=== PATIENT | female | born 2000 | race Caucasian/White ===

== ENCOUNTER 2023-10-03 14:29 | Emergency (ER) | payer SELFPAY ==
[~2023-10-03] VITALS: Ht 160 cm; Wt 60.0 kg
[2023-10-03 14:38] VITALS: TEMP 97.8; O2SAT 100
[2023-10-03] MEDS ORDERED: DIPH25CA83 MT (15:50)
[2023-10-03 16:00] VITALS: BP 117/90; PULSE 71; RESP 18
== END 2023-10-03 16:09 | disposition home or self-care (01) ==
LOC: ER 14:29
DX: L29.8 Other pruritus (principal)
CPT/HCPCS: 99282

== ENCOUNTER 2024-02-20 13:54 | Emergency (ER) | payer MEDICAID ==
[~2024-02-20] VITALS: Ht 154.9 cm; Wt 60.0 kg
[~2024-02-20 13:54] MED LIST: DIPH25CA83 MT
[2024-02-20 14:12] VITALS: TEMP 98.7; O2SAT 98
[2024-02-20 15:12] LABS: BASOPHILS % 1.3 % (0.0-2.0); DIFFERENTIAL COMMENT 0; EOSINOPHILS % 7.6 % (0.0-5.0); HEMATOCRIT. 39.6 % (36.0-48.0); LYMPHOCYTES % 30.8 % (20.0-50.0); MEAN CORPUSCULAR HEMOGLOBIN 25.6 pg (28.0-32.0); MEAN CORPUSCULAR HGB CONC 32.9 g/dL (31.0-37.0); MEAN PLATELET VOLUME 7.8 fl (7.4-10.4); MONOCYTES % 6.8 % (2.0-8.0); NEUTROPHILS % 53.5 % (40.0-76.0); PLATELET 351 x1000/uL (130-400); RED BLOOD CELL COUNT 5.08 mill/uL (4.2-5.4); RED CELL DISTRIBUTION WIDTH 16.3 % (11.6-14.6)
[2024-02-20] MEDS ORDERED: SUMATRIPTAN SUCCINATE 6MG/0.5ML VIAL SUBCUT ONE (15:15)
[2024-02-20 15:18] LABS: CHLORIDE 105 mEq/L (98-107); POTASSIUM 3.6 mEq/L (3.5-5.1); SODIUM 139 mEq/L (136-145)
[2024-02-20 15:19] LABS: CALCIUM 9.2 mg/dL (8.7-10.4); CARBON DIOXIDE 27 mEq/L (21-32)
[2024-02-20 15:21] LABS: HCG SCREEN NEGATIVE
[2024-02-20 15:24] LABS: CREATININE 0.8 mg/dL (0.6-1.0); GLUCOSE 91 mg/dL (70-105); UREA NITROGEN BLOOD 10 mg/dL (9-23)
[2024-02-20 15:31] LABS: CLARITY URINE CLEAR (CLEAR); COLOR URINE DARK YELLOW (YELLOW); GLUCOSE URINE NEGATIVE (NEGATIVE); KETONES URINE NEGATIVE (NEGATIVE); LEUKOCYTE ESTERASE URINE NEGATIVE (NEGATIVE); NITRITE URINE NEGATIVE (NEGATIVE); OCCULT BLOOD URINE 2+ (NEGATIVE); PH URINE 5.5 (4.5-8.0); PROTEIN URINE TRACE (NEGATIVE); SPECIFIC GRAVITY URINE 1.025 (1.005-1.030)
[2024-02-20 15:41] VITALS: BP 113/88; PULSE 96; RESP 16; O2SAT 98
[2024-02-20] MEDS: SUMATRIPTAN SUCCINATE 6MG/0.5ML VIAL SUBCUT NR (15:42)
[2024-02-20 16:01] LABS: BACTERIA URINE NONE SEEN; RBC URINE NONE SEEN /hpf (0-2); SQUAMOUS EPITHELIAL CELL URINE NONE SEEN /lpf (RARE/1+); WBC URINE NONE SEEN /hpf (0-2)
[2024-02-20] MEDS ORDERED: IMIT25 MT (17:57)
== END 2024-02-20 18:09 | disposition home or self-care (01) ==
LOC: ER 14:11
DX: R51.9 Headache, unspecified (principal); R11.0 Nausea; I10 Essential (primary) hypertension
CPT/HCPCS: 80048; 81003; 81025; 84703; 85025; 36415; 96372; 99283; J3030; Z7610

== ENCOUNTER 2024-05-23 12:08 | Emergency (ER) | payer MEDICAID ==
[~2024-05-23] VITALS: Ht 157.5 cm; Wt 61.2 kg
[~2024-05-23 12:08] MED LIST changes: +IMIT25 MT
[2024-05-23 12:19] VITALS: BP 109/70; PULSE 87; RESP 16; TEMP 36.7; O2SAT 98
[2024-05-23] MEDS: LACTATED RINGERS 1,000 ML IV SCH (13:23)
[2024-05-23] MEDS: METOCLOPRAMIDE HCL 10MG/2ML VIAL IV ONE (13:23)
[2024-05-23] MEDS: ACETAMINOPHEN 325MG TABLET PO ONE (13:23)
[2024-05-23 13:55] LABS: DIFFERENTIAL COMMENT 0; HEMATOCRIT. 33.8 % (36.0-48.0); HEMOGLOBIN. 10.9 g/dL (12.0-16.0); MEAN CORPUSCULAR HEMOGLOBIN 24.9 pg (28.0-32.0); MEAN CORPUSCULAR HGB CONC 32.2 g/dL (31.0-37.0); MEAN CORPUSCULAR VOLUME 77.4 fL (81.0-99.0); MEAN PLATELET VOLUME 7.4 fl (7.4-10.4); MONOCYTES % 8.3 % (2.0-8.0); NEUTROPHILS % 46.7 % (40.0-76.0); PLATELET 355 x1000/uL (130-400); RED BLOOD CELL COUNT 4.37 mill/uL (4.2-5.4); RED CELL DISTRIBUTION WIDTH 16.9 % (11.6-14.6)
[2024-05-23 14:04] LABS: CHLORIDE 108 mEq/L (98-107); POTASSIUM 3.7 mEq/L (3.5-5.1); SODIUM 144 mEq/L (136-145)
[2024-05-23 14:05] LABS: CALCIUM 8.6 mg/dL (8.7-10.4); CARBON DIOXIDE 27 mEq/L (21-32)
[2024-05-23 14:10] LABS: CREATININE 0.8 mg/dL (0.6-1.0); GLUCOSE 86 mg/dL (70-105); UREA NITROGEN BLOOD 11 mg/dL (9-23)
[2024-05-23 14:12] LABS: HCG SCREEN NEGATIVE
== END 2024-05-23 15:24 | disposition home or self-care (01) ==
LOC: ER 12:23
DX: R51.9 Headache, unspecified (principal); I10 Essential (primary) hypertension
CPT/HCPCS: 80048; 84703; 85025; 36415; 70450; 96361; 96374; 99285; J2765; Z7610